=== PATIENT | female | born 1990 | race Caucasian/White ===

== ENCOUNTER 2022-03-25 09:56 | Emergency (ER) | payer BC, OTHER ==
[2022-03-25] MEDS ORDERED: MAGNES/ALUMIN/SIMET 30ML UCUP ONE (10:40)
[2022-03-25] MEDS ORDERED: LIDOCAINE VISCOUS 2% SOLN 15 ML UDC ONE (10:40)
[2022-03-25 11:02] LABS: Absolute Lymphocytes (CBC) 1.2 K/uL (0.7-4.9); Hematocrit 36.8 % (36.0-45.0); Lymphocytes % 13.8 % (15.3-44.8); MCV 84.5 fL (80-100); MPV 8.4 fL (7.6-11.3); RBC Red Blood Cell Count 4.36 M/uL (3.86-4.86)
[2022-03-25 11:12] LABS: Protime INR 0.99
[2022-03-25 11:30] LABS: Albumin 3.1 g/dL (3.4-5.0); Bilirubin Direct 0.1 mg/dL (0-0.2); Bilirubin Total 0.2 mg/dL (0.2-1.0); Magnesium 1.9 mg/dL (1.8-2.4); Potassium 3.8 mmol/L (3.5-5.1); Protein, Total 7.1 g/dL (6.4-8.2); Troponin High Sensitivity 18.7 pg/mL (<58.9)
--- NOTE | 2022-03-25 12:00 | RAD REPORT ---
EXAM DESCRIPTION: RAD - Chest Single View - 03/25/2022 11:52 am CLINICAL HISTORY: CHEST PAIN, 31 week COMPARISON: None TECHNIQUE: AP portable chest image was obtained 03/25/2022 11:52 am . FINDINGS: Lungs are clear. No pulmonary edema or volume overload findings. Heart and vasculature are normal. No measurable pleural effusion and no pneumothorax. No acute bony abnormality seen. No acute aortic findings suspected. IMPRESSION: No acute cardiopulmonary process.
[2022-03-25 12:06] LABS: SARS-COV-2 RT PCR NEGATIVE (NEGATIVE)
--- NOTE | 2022-03-25 12:13 | RAD REPORT ---
EXAM DESCRIPTION: CT - Chest For Pe Angio - 03/25/2022 11:53 am CLINICAL HISTORY: chest pain, elevated d-dimer COMPARISON: Chest Single View dated 03/25/2022 TECHNIQUE: Dynamically enhanced 3 mm thick images of the chest were obtained during administration o f approximately 150mL Isovue 370 IV contrast. Coronal and oblique MIP reconstruction images were gene rated and reviewed. Exam utilizes a protocol to evaluate the pulmonary arterial tree. All CT scans are performed using dose optimization technique as appropriate and may include automated exposure control or mA/KV adjustment according to patient size. FINDINGS: No pulmonary emboli seen to the segmental branch level. Far peripheral subsegmental branch assessment is more limited. Pulmonary emboli are not suspected. The aorta as imaged shows no acute or suspicious finding. No pericardial thickening or effusion. No c ardiomegaly. No infiltrate or mass in the lung parenchyma. No pleural effusion or pleural thickening. No mediastinal or hilar suspicious masses. No chest wall masses or abnormal axillary lymphadenopathy. IMPRESSION: No pulmonary emboli identified. No other significant or suspicious findings.
--- NOTE | 2022-03-25 14:58 | EDPHYS ---
Physician Documentation [facility] Name: Sonja Kate Age: 31 yrs Sex: Female : 1990 Arrival Date: 03/25/2022 Time: 10:00 Bed 2 Private MD: ED Physician Ifeanyi Sibley HPI: 03/25 10:37 This 31 yrs old Female presents to ER via Ambulatory with complaints of Chest Pain. jmm 10:37 The patient or guardian reports chest pain that is located primarily in the substernal [facility] area. The pain radiates to back. Associated signs and symptoms: Pertinent positives: shortness of breath. The chest pain is described as aching. Duration: The patient or guardian reports a single episode, that is still ongoing. This is a 31 year old female currently 31 weeks IUP that presents to the ED with complaints of chest pain sob beginning this morning. Patient states she initially thought it may be her asthma but symptoms were not alleviated with albuterol. Denies fever, denies cough. Denies vaginal bleeding or leakage of fluid. . 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 - Social history:: Smoking status: Patient denies any tobacco usage or history of. ROS: 10:42 Constitutional: Negative for fever, chills, and weight loss. jmm 10:42 Cardiovascular: Positive for chest pain. 10:42 Respiratory: Positive for shortness of breath. 10:42 All other systems are negative. Exam: 10:42 Constitutional: This is a well developed, well nourished patient who is awake, alert, jmm and in no acute distress. Head/Face: atraumatic. Eyes: EOMI, no conjunctival erythema appreciated ENT: Moist Mucus Membranes Neck: Trachea midline, Supple Chest/axilla: Normal chest wall appearance and motion. Cardiovascular: Regular rate and rhythm. No edema appreciated Respiratory: Normal respirations, no respiratory distress appreciated 10:42 Back: Normal ROM Skin: General appearance color normal MS/ Extremity: Moves all extremities, no obvious deformities appreciated, no edema noted to the lower extremities Neuro: Awake and alert Psych: Behavior is normal, Mood is normal, Patient is cooperative and pleasant 10:42 Abdomen/GI: Inspection: gravid appearance, is noted, Bowel sounds: normal, Palpation: abdomen is soft and non-tender, in all quadrants. Vital Signs: 10:08 BP 139 / 95; Pulse 100; Resp 17; Temp 98.1(O); Pulse Ox 98% on R/A; Weight 122.47 kg; vg1 Height 5 ft. 9 in. (175.26 cm); Pain 5/10; 12:15 BP 124 / 82; Pulse 107; Resp 16; Pulse Ox 98% ; bp 13:36 BP 132 / 93; Pulse 107; Resp 16; Pulse Ox 99% ; bp 14:53 BP 115 / 82; Pulse 113; Resp 18; Pulse Ox 100% ; bp 10:08 Body Mass Index 39.87 (122.47 kg, 175.26 cm) vg1 MDM: 10:15 Patient medically screened. [facility] 10:43 Data reviewed: vital signs, nurses notes. [facility] 03/25 10:22 Order name: Basic Metabolic Panel; Complete Time: : [facility] 03/25 10:22 Order name: CBC with Diff; Complete Time: 11: [facility] 03/25 10:22 Order name: D-Dimer; Complete Time: 11: [facility] 03/25 10:22 Order name: LFT's; Complete Time: :34 [facility] 03/25 10:22 Order name: Magnesium; Complete Time: 11:34 [facility] 03/25 10:22 Order name: NT PRO-BNP; Complete Time: 11:34 [facility] 03/25 10:22 Order name: PT-INR; Complete Time: 11:21 [facility] 03/25 10:22 Order name: Troponin HS; Complete Time: :34 [facility] 03/25 10:22 Order name: XRAY Chest (1 view); Complete Time: 12:07 [facility] 03/25 10:22 Order name: EKG; Complete Time: 10:22 [facility] 03/25 10:41 Order name: COVID-19/FLU A+B; Complete Time: 12:07 [facility] 03/25 11:34 Order name: CT Chest For PE Angio; Complete Time: 12:15 [facility] 03/25 13:25 Order name: Troponin High Sensitivity; Complete Time: 14:25 [facility] 03/25 10:22 Order name: Cardiac monitoring; Complete Time: 10:57 [facility] 03/25 10:22 Order name: EKG - Nurse/Tech; Complete Time: 10:57 [facility] 03/25 10:22 Order name: IV Saline Lock; Complete Time: 10:57 [facility] 03/25 10:22 Order name: Labs collected and sent; Complete Time: 10:57 [facility] 03/25 10:22 Order name: O2 Per Protocol; Complete Time: 10:57 [facility] 03/25 10:22 Order name: O2 Sat Monitoring; Complete Time: 10:57 [facility] Administered Medications: 10:55 Drug: GI Cocktail without - (Maalox Suspension 30 ml, Lidocaine Liquid 2 % 15 bp ml) Route: PO; 11:22 Follow up: Response: No adverse reaction bp Disposition Summary: 03/25/22 14:57 Discharge Ordered Location: Home [facility] Condition: Stable [facility] Diagnosis - Chest pain, unspecified [facility] Followup: [facility] - With: Private Physician - When: Tomorrow - Reason: Recheck today's complaints, Continuance of care, Re-evaluation by your physician Discharge Instructions: - Discharge Summary Sheet jm - Nonspecific Chest Pain, Adult jm Forms: - Medication Reconciliation Form [facility] - Thank You Letter [facility] - Antibiotic Education [facility] - Prescription Opioid Use [facility] - Work release form ss - Family Work Release ss Prescriptions: - Pepcid 20 mg Oral Tablet - take 1 tablet by ORAL route every 12 hours for 10 days; 20 tablet; Refills: 0, [facility] Product Selection Permitted Addendum: 03/27/2022 13:34 Co-signature as Attending Physician, Ifeanyi Sibley MD I agree with the assessment and c beck plan of care. Signatures: Dispatcher [employer] Ifeanyi Lane MD MD cha Mickail, Joel, PA PA jmm Peltier, Brian, RN RN Dayami Baldwin, RN RN vg1 Corrections: (The following items were deleted from the chart) 03/25 10:43 10:37 This is a 31 year old female currently 31 weeks IUP that presents to the ED with jmm complaints of chest pain sob beginning this morning. Patient states she initially thought it may be her asthma but symptoms were not alleviated with albuteral. Denies fever, denies cough. faviola
--- NOTE | 2022-03-25 14:58 | ER ---
Nurse's Notes [facility] Name: Sonja Kate Age: 31 yrs Sex: Female : 1990 Arrival Date: 03/25/2022 Time: 10:00 Bed 2 Private MD: Diagnosis: Chest pain, unspecified Presentation: 03/25 10:08 Chief complaint: Patient states: CP began this morning around 0830, pt though it was vg1 asthma and took inhaler but pain did not subside and began to radiate to Right arm and back + SOB. Denies N/V. Coronavirus screen: Vaccine status: Patient reports receiving the 2nd dose of the covid vaccine. Client denies travel out of the [place] in the last 14 days. Ebola Screen: Patient negative for fever greater than or equal to 101.5 degrees Fahrenheit, and additional compatible Ebola Virus Disease symptoms. Initial Sepsis Screen: Does the patient meet any 2 criteria? HR > 90 bpm. Does the patient have a suspected source of infection? No. Patient's initial sepsis screen is negative. Risk Assessment: Do you want to hurt yourself or someone else? Patient reports no desire to harm self or others. Onset of symptoms was March 25, 2022. 10:08 Method Of Arrival: Ambulatory vg1 10:08 Acuity: DRAKE 3 vg1 Triage Assessment: 10:11 General: Appears in no apparent distress. uncomfortable, Behavior is calm, cooperative. vg1 Pain: Complains of pain in chest Pain radiates to back and right arm Pain currently is 5 out of 10 on a pain scale. Cardiovascular: Reports chest pain, shortness of breath, Patient's skin is warm and dry. Respiratory: Airway is patent Respiratory effort is even, unlabored. 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 - Social history:: Smoking status: Patient denies any tobacco usage or history of. Screenin:10 Abuse screen: Denies threats or abuse. Denies injuries from another. Nutritional bp screening: No deficits noted. Tuberculosis screening: No symptoms or risk factors identified. Fall Risk None identified. Assessment: 10:10 General: SEE TRIAGE NOTE. bp 12:15 Reassessment: Patient appears in no apparent distress at this time. No changes from bp previously documented assessment. Patient and/or family updated on plan of care and expected duration. Pain level reassessed. 13:36 Reassessment: REPEAT TROP SENT. bp 15:07 Reassessment: PT DC HOME AMBULATORY. bp Vital Signs: 10:08 BP 139 / 95; Pulse 100; Resp 17; Temp 98.1(O); Pulse Ox 98% on R/A; Weight 122.47 kg; vg1 Height 5 ft. 9 in. (175.26 cm); Pain 5/10; 12:15 BP 124 / 82; Pulse 107; Resp 16; Pulse Ox 98% ; bp 13:36 BP 132 / 93; Pulse 107; Resp 16; Pulse Ox 99% ; bp 14:53 BP 115 / 82; Pulse 113; Resp 18; Pulse Ox 100% ; bp 10:08 Body Mass Index 39.87 (122.47 kg, 175.26 cm) vg1 ED Course: 10:00 Patient arrived in ED. mr 10:09 Triage completed. vg1 10:10 Patient has correct armband on for positive identification. Bed in low position. Call bp light in reach. Side rails up X2. Adult w/ patient. Client placed on continuous cardiac and pulse oximetry monitoring. NIBP monitoring applied. 10:11 Arm band placed on. vg1 10:14 Nav Baig PA is PHCP. jmm 10:14 Ifeanyi Sibley MD is Attending Physician. jmm 10:37 Fritz Bone, CARLOS is Primary Nurse. bp 10:51 Inserted saline lock: 20 gauge in right forearm, using aseptic technique. Blood bp collected. 10:51 Patient maintains SpO2 saturation greater than 95% on room air. bp 10:58 EKG done, by ED staff, reviewed by Nav RAMOS. jw7 11:54 XRAY Chest (1 view) In Process Unspecified. EDMS 11:55 CT Chest For PE Angio In Process Unspecified. EDMS 15:07 No provider procedures requiring assistance completed. IV discontinued, intact, bp bleeding controlled, No redness/swelling at site. Pressure dressing applied. Administered Medications: 10:55 Drug: GI Cocktail without - (Maalox Suspension 30 ml, Lidocaine Liquid 2 % 15 bp ml) Route: PO; 11:22 Follow up: Response: No adverse reaction bp Medication: 10:10 VIS not applicable for this client. bp Outcome: 14:57 Discharge ordered by MD. salmeron 15:07 Discharged to home ambulatory, with family. bp 15:07 Condition: stable 15:07 Discharge instructions given to patient, Instructed on discharge instructions, follow up and referral plans. medication usage, Demonstrated understanding of instructions, follow-up care, medications, Prescriptions given X 1. 15:08 Patient left the ED. bp Signatures: Dispatcher [employer] EDMS Nav Baig PA PA jmm RiveraBrenda mr BoneFritz, RN RN Dayami Baldwin RN RN vg1 Maggy Donaldson jw7 Corrections: (The following items were deleted from the chart) 10:12 10:11 Respiratory: Airway is patent Respiratory effort is even, labored, vg1 vg1
[2022-03-25 15:20] VITALS: TEMP 98.1
[2022-03-25 15:23] VITALS: BP 115/82; O2SAT 100
--- NOTE | 2022-03-26 19:13 | EKG ---
Test Date: 2022-03-25 Test Time: 10:55:17 Physical Therapy Assistant: BP MEASUREMENT RESULTS: Intervals: Rate: 95 NJ: 142 QRSD: 98 QT: 354 QTc: 444 [place]: P: 63 NJ: 142 QRS: 17 T: 41 INTERPRETIVE STATEMENTS: Normal sinus rhythm Normal ECG No previous ECG available for comparison Electronically Signed On 03-26-22 19:10:33 TESTING LEAD by Ryan Dacosta
== END 2022-03-25 15:08 | disposition home or self-care (01) ==
LOC: ER 09:56
DX: O26.893 Other specified pregnancy related conditions, third trimester (principal); O99.513 Diseases of the respiratory system complicating pregnancy, third trimester; J45.909 Unspecified asthma, uncomplicated; Z3A.31 31 weeks gestation of pregnancy; Z20.822 Contact with and (suspected) exposure to COVID-19; Z88.8 Allergy status to other drugs, medicaments and biological substances
CPT/HCPCS: 93005; 85025; 80048; 36415; 83735; 85610; 85379; 80076; 84484 ×2; 83880; 0240U; 71275; 71045; 99284; Q9967